=== PATIENT | male | born 1960 | race Caucasian/White ===

== ENCOUNTER → 2023-01-14 | Outpatient (CLI) | payer MEDICARE, MEDICAID, SELFPAY ==
--- NOTE | 2023-01-14 08:06 | RAD_ITS ---
STUDY: X-RAY - ESOPHAGUS (BARIUM SWALLOW) WITH FLUOROSCOPY REASON FOR EXAM: Male, 62 years old. reflux despite Faviola, dysphagia TECHNIQUE: 17 view(s) of the esophagus were obtained following swallowing of barium. FLUOROSCOPY TIME (if supplied): (39 seconds) minutes/seconds. 100.53 mGy COMPARISON: None. FINDINGS: There is no demonstrated esophageal foreign body. There is no demonstrated stricture or mucosal abnormality. Normal gastroesophageal junction, without a demonstrated hiatal hernia. The patient ingested a 12 mm tablet of barium without any difficulty. There is atherosclerotic tortuosity of the aortic arch and descending thoracic aorta. Normal visualized pulmonary parenchyma. Normal visualized osseous structures of the thorax. RAD/Esophagus Dual Contrast IMPRESSION: No acute abnormality is seen. Electronically Signed: Jasvir Arellano MD at 13:37 EDT ,
== END | disposition home or self-care (01) ==
LOC: RAD 07:51
PROVIDERS: Referring Provider Nurse Practitioner Adult Health; Visit Provider Nurse Practitioner Adult Health
DX: R13.10 Dysphagia, unspecified (principal); K21.9 Gastro-esophageal reflux disease without esophagitis; Z98.890 Other specified postprocedural states
CPT/HCPCS: 74221

== ENCOUNTER → 2023-02-12 | Outpatient (CLI) | payer MEDICARE, MEDICAID, SELFPAY ==
--- NOTE | 2023-02-12 07:39 | US_ITS ---
STUDY: ABDOMINAL ULTRASOUND - RIGHT UPPER QUADRANT REASON FOR VISIT: Male, 62 years old postprandial diarrhea/RUQ -- RUQ TECHNIQUE: Ultrasound evaluation of the right upper quadrant was performed with real-time and static ramsey-scale imaging. TECHNICAL QUALITY: Adequate. COMPARISON: None. FINDINGS: Liver: The liver is enlarged and measures 17.6 cm. There is increased echogenicity consistent with fatty infiltration. The bile ducts are within normal limits. There is hepatic color flow. The direction of portal flow is hepatopetal. There is no demonstrated mass lesion. Gallbladder: The patient is status post cholecystectomy. Common Bile Duct (C.B.D.): The common bile duct measures 5.6 mm. Pancreas: There is nonvisualization of the pancreas due to overlying bowel gas. Right Kidney: Normal size of the right kidney. The right kidney measures 12.3 cm x 7.8 cm x 6.2 cm. Normal renal cortex. The right cortex measures 2.3 cm. There is no demonstrated renal mass or cyst. There is no right hydronephrosis. US/Abdomen Limited IMPRESSION: Mild hepatomegaly and fatty infiltration of the liver. Electronically Signed: Jasvir Arellano MD at 14:13 EDT ,
== END | disposition home or self-care (01) ==
PROVIDERS: Referring Provider Nurse Practitioner Adult Health; Visit Provider Nurse Practitioner Adult Health
DX: R10.11 Right upper quadrant pain (principal)
CPT/HCPCS: 76705

== ENCOUNTER 2023-03-13 09:28 | Day surgery (SDC) | payer MEDICARE, MEDICAID, SELFPAY ==
--- NOTE | 2023-03-13 09:55 | HP.PCM_ITS ---
History and Physical Date of Admission: 03/13/23 Chief Complaint: acid reflux, diarrhea Details: ARABELLA RIVERA, is a 62 M who presents to the office today to establish with Gastroenterology for acid reflux and diarrhea. He is on esomeprazole 40 mg BID and sucralfate. But continues to have acid reflux, regurgitation. He has episodes of urgent diarrhea. Can have diarrhea after eating, solid or loose/watery. Gets pain RUQ after eating, doesn't know if it radiates, happens almost daily Can't vomit since Faviola Sometimes can't get food down so retches it up I'm ok if I don't eat He saw general surgeon Dr Marcano who did EGD and colonoscopy at [place] in 04/2022. On EGD Dr Marcano reported intact Faviola fundoplication, normal esophag us, normal stomach, normal duodenum. Colonoscopy revealed one tubular adenoma in the descending colon, diverticulosis in sigmoid colon. Hx Faviola fundoplication ROS Const Constitutional: No fatigue ENT ENT: Positive for difficulty swallowing Gastro GI: Positive for abdominal pain, bloating, difficulty swallowing, excessive flatus and nausea/dyspepsia; No belching, change in bowel habits, change in stool character, coffee ground emesis, constipation, cramping, diarrhea, heartburn, feeling full early, inc ontinent of stools, Vomiting blood/hematemesis, Blood in stool, loose stools, Black,tarry stools, pain with swallowing, vomiting or other Musc Musculoskeletal: Positive for joint pain, back pain, muscle cramps, muscle weakness, numbness, stiffness, tingling, Arthritis and leg pain at night Skin Skin: No yellowing of the eye or itchy eyes Neuro Neurology: Positive for numbness and tingling Psych Psychiatric: Positive for anxiety and Positive for depression Endo Endocrine: No fatigue Aller/Imm Allergy/Immunologic: No itchy eyes Lloyd/Lymp Hematologic/Lymphatic: No easy bleeding or easy bruising Exam Const General: cooperative and comfortable Nutritional Appearance: obese Orientation: alert, awake and oriented x3 HENMT Head: normal to inspection Eyes Sclera: sclerae normal Resp Effort & Inspection: normal respiratory effort GI Palpation: soft, no hepatosplenomegaly, no masses and nontender Quality Reporting Tobacco Screening ([facility] 138) Smoking Status: Never smoker Assessment and Plan Assessment and Plan (1) RUQ abdominal pain: Status: Chronic Plan: 62 yr old male with acid reflux despite hx of Faviola fundoplication, he takes PPI and sucralfate. Gets RUQ pain. Has dysphagia, regurgitation. Esophagram (pt prefers in [place]) EGD Consider RUQ US (2) History of Faviola fundoplication: Status: Chronic Plan: see above (3) GERD (gastroesophageal reflux disease): Status: Chronic Plan: see above (4) Dysphagia: Status: Chronic Plan: see above Orders: Orders Esophagus Dual Contrast 01/14/23 K21.9 - Gastro-esophageal reflux disease without esophagitis, R13.10 - Dysphagia, unspecified, Z98.890 - Other specified postprocedural states Coding I have examined the patient and the H&P has been reviewed. There are no clinical changes since date of exam.
[2023-03-13 10:07] VITALS: BP 141/84; PULSE 19; RESP 91; TEMP 37.2; O2SAT 96; BMI 39.8
[2023-03-13] MEDS: Lactated Ringers 1,000 ML 15 ML IV (10:07)
--- NOTE | 2023-03-13 10:30 | EGD_PTH ---
PATIENT: ARABELLA RIVERA LOC: [facility] U#:[id number] AGE/SX: 62/M ROOM: RE03/13/[address]: Dr. Garry Quiles DO : 1960 BED: DIS: 03/13/2023 SPEC #: [id number] RECD: 03/13/23 13:56 STATUS: LUI GLASSSharmin #: [id number] MAYNOR: 03/13/23 10:[address]: Garry Quiles DEPT: SURGICAL PATHOLOGY RECD BY: Codie Hopkins ENTERED: 03/14/23 08:34 SP TYPE: EGD BIOPSY OT DR: Lisa Primary Care Phys Tissues: Esophagus, NOS Procedures: Special Stain Group II Surgery Specimen Level IV Alcian Blue/PAS (control) HEADER OPERATION: EGD ([facility]), biopsy, dilation PRE-OP DIAGNOSIS: RUQ abdominal pain, history of Faviola fundoplication, GERD, dysphagia TISSUE SUBMITTED: Distal esophagus biopsy MICROSCOPIC DIAGNOSIS Distal esophagus, biopsy: Gastroesophageal junctional mucosa with chronic inflammation. Focal changes of reflux. No evidence of goblet cell metaplasia. See comment. AM:rakesh 03/15/2023 COMMENT Alcian blue/PAS stain with matched control supports the above diagnosis. MICROSCOPIC DESCRIPTION Slides are reviewed. GROSS DESCRIPTION Received in fixative is one container labeled with the patient's name and designated distal esophagus biopsy. The specimen consists of two irregular fragments of light martinez soft tissue that in aggregate measure 0.7 x 0.5 x 0.1 cm. The specimen is totally submitted in one cassette. / AM:rakesh 03/14/2023 TC:3 CPT: 73848, 73031
[2023-03-13 10:45] VITALS: BP 100/63; BP 141/84; PULSE 84; RESP 18; TEMP 37.1; O2SAT 92
--- NOTE | 2023-03-13 10:48 | OP.CCLET_ITS ---
03/13/2023 No Primary Care Physician Re : Upper GI endoscopy procedure for Emery Guy Dear Care Physician This procedure was performed on Monday, March 13, 2023. My impressions and recommendations are as follows: Impressions : - Benign-appearing esophageal stenosis. Dilated. - Normal lesser curvature of the stomach. - Normal. - No specimens collected. Recommendations : - Discharge patient to home. - Discharge patient to home. - Advance diet as tolerated. - Continue present medications. My findings are described in the full procedure note, which is enclosed. If I can be of further assistance, please feel free to contact me at . Sincerely, Garry Quiles, 03/13/2023 10:48:05 AM This report has been signed electronically.
--- NOTE | 2023-03-13 10:48 | OP.EGD_ITS ---
Patient Name: Emery Guy Procedure Date: 03/13/2023 10:27 AM Date of : 1960 Age: 62 Procedure: Upper GI endoscopy Indications: Dysphagia Providers: Garry Quiles DO Referring MD: Garry Quiles DO Medicines: Monitored Anesthesia Care Patient Profile: This is a 62 year old male. Refer to note in patient chart for documentation of history and physical. Patient has symptoms of chronic dysphagia. Complications: No immediate complications. Procedure: Pre-Anesthesia Assessment: - Prior to the procedure, a History and Physical was performed, and patient medications and allergies were reviewed. The risks and benefits of the procedure and the sedation options and risks were discussed with the patient. All questions were answered and informed consent was obtained. Patient identification and proposed procedure were verified by the physician in the pre-procedure area. Mental Status Examination: alert and oriented. Airway Examination: normal oropharyngeal airway and neck mobility. Respiratory Examination: clear to auscultation. CV Examination: normal. Prophylactic Antibiotics: The patient does not require prophylactic antibiotics. Prior Anticoagulants: The patient has taken no previous anticoagulant or antiplatelet agents. ASA Grade Assessment: II - A patient with mild systemic disease. After reviewing the risks and benefits, the patient was deemed in satisfactory condition to undergo the procedure. The anesthesia plan was to use monitored anesthesia care (MAC). Immediately prior to administration of medications, the patient was re-assessed for adequacy to receive sedatives. The heart rate, respiratory rate, oxygen saturations, blood pressure, adequacy of pulmonary ventilation, and response to care were monitored throughout the procedure. The physical status of the patient was re-assessed after the procedure. After obtaining informed consent, the endoscope was passed under direct vision. Throughout the procedure, the patient's blood pressure, pulse, and oxygen saturations were monitored continuously. The Endoscope was introduced through the mouth, and advanced to the second part of duodenum. The upper GI endoscopy was accomplished with ease. The patient tolerated the procedure well. Moderate Sedation: Moderate (conscious) sedation was personally administered by an anesthesia professional. The following parameters were monitored: oxygen saturation, heart rate, blood pressure, respiratory rate, EKG, adequacy of pulmonary ventilation, and response to care. Total physician intraservice time was 15 minutes. Scope In: 10:32:04 AM Scope Out: 10:36:05 AM Total Procedure Duration Time 0 hours 4 minutes 1 second Findings: One benign-appearing, intrinsic stenosis was found 40 to 42 cm from the incisors. This stenosis was moderately severe and. The stenosis was traversed. A guidewire was placed and the scope was withdrawn. Dilation was performed with a Savary dilator with mild resistance at 5 mm. The dilation site was examined and showed moderate improvement in luminal narrowing. Estimated blood loss was minimal. The lesser curvature of the stomach was normal. The in the duodenum was normal. Impression: - Benign-appearing esophageal stenosis. Dilated. - Normal lesser curvature of the stomach. - Normal. - No specimens collected. Recommendation: - Discharge patient to home. - Discharge patient to home. - Advance diet as tolerated. - Continue present medications. Procedure Code(s): --- Professional --- 85633, Esophagogastroduodenoscopy, flexible, transoral; with insertion of guide wire followed by passage of dilator(s) through esophagus over guide wire CPT copyright 2017 [employer]. All rights reserved. The codes documented in this report are preliminary and upon diversified crops i farmworker review may be revised to meet current compliance requirements. Garry Quiles DO 03/13/2023 10:48:05 AM This report has been signed electronically. Number of Addenda: 0 Note Initiated On: 03/13/2023 10:27 AM
[2023-03-13 10:50] VITALS: BP 141/84; BP 90/61; PULSE 86; RESP 16; O2SAT 92
[2023-03-13 10:55] VITALS: BP 141/84; BP 98/65; PULSE 84; RESP 16; O2SAT 92
[2023-03-13 11:00] VITALS: BP 109/73; BP 141/84; BP 99/64; PULSE 84; PULSE 92; RESP 16; TEMP 37.1; O2SAT 93
[2023-03-13 11:39] VITALS: BP 141/84
== END 2023-03-13 11:57 | disposition home or self-care (01) ==
LOC: EN 09:34 → AC 09:35
PROVIDERS: Visit Provider Internal Medicine Gastroenterology
PROC: 0DJ08ZZ Inspection of Upper Intestinal Tract, Via Natural or Artificial Opening Endoscopic (ICD-10-PCS; CPT 43235; principal; 2023-03-13 10:25)
DX: K21.00 Gastro-esophageal reflux disease with esophagitis, without bleeding (principal); K22.2 Esophageal obstruction; Z86.010 Personal history of colon polyps; Z98.890 Other specified postprocedural states; Z79.82 Long term (current) use of aspirin; I25.10 Atherosclerotic heart disease of native coronary artery without angina pectoris; E78.00 Pure hypercholesterolemia, unspecified; J45.909 Unspecified asthma, uncomplicated; Z87.19 Personal history of other diseases of the digestive system; Z79.899 Other long term (current) drug therapy; Z90.49 Acquired absence of other specified parts of digestive tract
CPT/HCPCS: 43248; 88305; 88313; J7120; J2405

== ENCOUNTER → 2023-04-09 | Outpatient (CLI) | payer MEDICARE, MEDICAID, SELFPAY ==
--- NOTE | 2023-04-09 07:43 | US_ITS ---
STUDY: ABDOMINAL ULTRASOUND - ELASTOGRAPHY REASON FOR VISIT: Male, 62 years old. Fatty infiltration of the liver. TECHNIQUE: Liver stiffness measurements were obtained on a A[employer]is 3D Inspection RS 85 ultrasound machine using a CA 1-7 probe following the SRU guidelines. 3 measurements were obtained using a 2-D-SWE method. TheIQR/M was 21 % suggesting a quality data set. TECHNICAL QUALITY: Adequate. COMPARISON: None. FINDINGS: Liver: Fatty infiltration of the liver. Median liver stiffness measured 6.2 kPa. Abdomen: There is no demonstrated mass lesion. US/Elastography Parenchyma/Organ IMPRESSION: Liver stiffness measures 6.2 kPa compatible with F2-F3 (Mild to moderate liver fibrosis) Metavir score. Electronically Signed: Jasvir Arellano MD at 15:00 EDT ,
== END | disposition home or self-care (01) ==
LOC: US 07:39
PROVIDERS: Referring Provider Internal Medicine Gastroenterology; Visit Provider Internal Medicine Gastroenterology
DX: K76.0 Fatty (change of) liver, not elsewhere classified (principal); R16.0 Hepatomegaly, not elsewhere classified
CPT/HCPCS: 76981

== ENCOUNTER → 2023-04-22 | Outpatient (CLI) | payer MEDICARE, MEDICAID, SELFPAY ==
--- NOTE | 2023-04-22 08:07 | NM_ITS ---
CLINICAL: 62-year-old male with history of abdominal bloating. SEMI-SOLID PHASE 99m Tc SULFUR COLLOID GASTRIC EMPTYING STUDY COMPARISON: None available FINDINGS: The patient was administered 1.0 mCi of 99m Tc sulfur colloid mixed with oatmeal and consumed per os. Image acquisitions in the anterior-posterior projections were obtained for 60 minutes. There is prompt visualization of the stomach. There is no gastroesophageal reflux identified. The T ? raw data emptying was calculated to be 36.93 minutes, (Normal: 12-56 minutes). NM/Gastric Emptying Study IMPRESSION: 1. NORMAL 99m Tc sulfur colloid semi-solid phase (oatmeal) gastric emptying imaging examination. A. There is normal and preserved semi-solid phase gastric emptying compared to normal controls. (Alissa et al, J Nucl Med Tech 38: 186, 2010). Electronically Signed: Bebo Ordonez, at 20:13 EDT ,
== END | disposition home or self-care (01) ==
LOC: NM 08:02
PROVIDERS: Referring Provider Internal Medicine Gastroenterology; Visit Provider Internal Medicine Gastroenterology
DX: R14.0 Abdominal distension (gaseous) (principal)
CPT/HCPCS: 78264; A9541